=== PATIENT | male | born 1965 | race Caucasian/White ===

== ENCOUNTER → 2019-01-11 | Outpatient (REF) | payer OTHER, MEDICARE ==
[~2019-01-11] MED LIST: ALLERGY RE50 MCG/ACT; ASPIRIN 81 LOW81 MG; BACTRIM DS1 TAB PO; BYETTA10 SC; DILAUDID4 MG PO; DURAGESIC100 MCG/1 TD; DURAGESIC100 MCG/HR TD; FENOFIBRATE160 MG PO; FLUTICASONE50 MCG; LOPID600 MG PO; METFORMIN HCL1000 MG PO; MOTRIN800 MG PO; NAPROSYN500 MG PO; NEURONTIN600 MG PO; NEURONTIN800 MG PO; PRILOSEC20 MG PO; SIMVASTATIN80 MG PO; TAMSULOSIN0.4 MG PO; TESTOST CYP200 MG/ML IM; TRAZODONE100 MG PO; TRESIBA FL100 UNIT/M IJ; VOLTAREN1%GEL TOP; ZESTRIL10 M1 PO; ZOLPIDEM10 MG PO; ZOLPIDEM5 M1 PO
== END | disposition home or self-care (01) | DRG 951 ==
LOC: PAIN/MGT 07:11
PROVIDERS: ATTEND Anesthesiology Pain Medicine
DX: Z09 Encounter for follow-up examination after completed treatment for conditions other than malignant neoplasm (principal)

== ENCOUNTER 2019-12-28 | Day surgery (SDC) | payer OTHER, MEDICARE ==
[~2019-12-28] MED LIST changes: +ELAVIL50 MG PO; +LYRICA200 MG PO
[2019-12-28] MEDS ORDERED: HUMULIN N100 UNIT/M IJ (08:27)
[2019-12-28] MEDS ORDERED: BYDUREON2 MG (08:30)
[2019-12-28] MEDS ORDERED: DURAGESIC100 MCG/HR TD (09:47)
[2019-12-28] MEDS ORDERED: DILAUDID4 MG PO (09:48)
[2019-12-28] MEDS ORDERED: ALLERGY RE50 MCG/ACT (09:50)
[2019-12-28] MEDS ORDERED: NEURONTIN600 MG PO (10:39)
[2020-01-24] MEDS ORDERED: DURAGESIC100 MCG/HR TD (08:01)
[2020-01-24] MEDS ORDERED: DILAUDID4 MG PO (08:02)
[2020-01-24] MEDS ORDERED: VOLTAREN1%GEL TOP (08:03)
[2020-02-28] MEDS ORDERED: DURAGESIC100 MCG/HR TD (08:09)
[2020-02-28] MEDS ORDERED: DILAUDID4 MG PO (08:10)
[2020-02-28] MEDS ORDERED: DICLOFENAC75 MG PO (08:11)
[2020-03-27] MEDS ORDERED: DICLOFENAC75 MG PO (08:05)
[2020-03-27] MEDS ORDERED: DILAUDID4 MG PO (08:06)
[2020-03-27] MEDS ORDERED: DURAGESIC100 MCG/HR TD (08:06)
[2020-04-24] MEDS ORDERED: DURAGESIC100 MCG/HR TD (08:04)
[2020-04-24] MEDS ORDERED: DICLOFENAC75 MG PO (08:05)
[2020-04-24] MEDS ORDERED: DILAUDID4 MG PO (08:10)
[2020-05-29] MEDS ORDERED: DURAGESIC100 MCG/HR TD (07:37)
[2020-05-29] MEDS ORDERED: DILAUDID4 MG PO (07:38)
[2020-05-29] MEDS ORDERED: NEURONTIN600 MG PO (07:39)
[2020-07-10] MEDS ORDERED: DURAGESIC100 MCG/HR TD (07:45)
[2020-07-10] MEDS ORDERED: DILAUDID4 MG PO (07:46)
[2020-08-14] MEDS ORDERED: DURAGESIC100 MCG/HR TD (07:54)
[2020-08-14] MEDS ORDERED: DILAUDID4 MG PO (07:55)
== END 2019-12-28 10:43 | disposition home or self-care (01) | DRG 552 ==
DX: M54.5 Low back pain (principal); M46.1 Sacroiliitis, not elsewhere classified; M96.1 Postlaminectomy syndrome, not elsewhere classified